=== PATIENT | female | born 2000 | race African-American/Black ===

== ENCOUNTER 2025-03-14 09:59 | Outpatient (REF) | payer OTHER, SELFPAY ==
[2025-03-14 11:37] LABS: Hematocrit 39.1 % (37.0-47.0); Hemoglobin 12.8 g/dl (12.0-16.0); Mean Corpuscular HGB Conc 32.7 g/dl (31.0-35.0); Mean Corpuscular Hemoglobin 30.5 pg (27.0-33.0); Mean Corpuscular Volume 93.3 fL (80.0-98.0); NRBC Abs Auto 0.000 X10*3/uL (0.0-0.012); NRBC Pct Auto 0.0 /100WBC (0.0-0.2); Platelet Count 192 X10*3/uL (160-400); Red Blood Count 4.19 X10*6/uL (4.20-5.50); White Blood Count 4.0 X10*3/uL (4.8-10.8)
[2025-03-14 13:50] LABS: HIV Num 1 0.06 S/CO (0.00-0.99); ~HepC Num1 0.14 S/CO (0.00-0.79); ~Hepatitis C Antibody Nonreactive (Nonreactive)
[2025-03-14 13:53] LABS: Alanine Aminotransferase 10 U/L (0-31); Albumin Level 4.5 g/dL (3.5-5.0); Alkaline Phosphatase 67 U/L (39-117); Anion Gap 11 (12-20); Aspartate Amino Transferase 19 U/L (5-31); Blood Urea Nitrogen 8 mg/dL (9-16); Calcium 9.2 mg/dL (8.4-10.2); Carbon Dioxide 25 mmol/L (22-29); Chloride 107 mmol/L (96-108); Cholesterol 179 mg/dL (<200); Estimated Glomerular Filt Rate > 60; HDL Cholesterol 69 mg/dL (>40); Potassium 4.7 mmol/L (3.3-5.1); Sodium 138 mmol/L (135-145); Total Protein 7.4 g/dL (6.5-8.0); Triglycerides 43 mg/dL (<150)
[2025-03-15 05:29] LABS: Rubeola IgG (Measles) 162.00 AU/mL
== END 2025-03-14 10:00 | disposition home or self-care (01) ==
LOC: HO.LAB 09:59
PROVIDERS: PCP Internal Medicine; Visit Provider Internal Medicine
DX: Z00.00 Encounter for general adult medical examination without abnormal findings (principal); Z23 Encounter for immunization; N89.8 Other specified noninflammatory disorders of vagina; N64.4 Mastodynia
CPT/HCPCS: 36415; 80053; 80061; 83036; 84443; 85027; 86735; 86762; 86765; 86803; 87389; 90471; 90472; 90656; 90715; 99202

== ENCOUNTER 2025-03-14 09:59 | Outpatient (AMB) | payer OTHER, SELFPAY ==
--- NOTE | 2025-03-14 10:18 | MHC.PC.OV ---
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 The patient reports experiencing random pain in her breasts a few times, with no discernible pattern or relationship to her menstrual cycle. The patient also reports a change in vaginal odor and a small amount of discharge, prompting a request for bacterial vaginosis testing. She does not currently have an SUPERVISOR MACHINE SETTER. The patient reports smoking cannabis mixed with tobacco, but not on a daily basis. She denies significant alcohol use. She reports taking no medications. The patient denies any past surgeries. Family history is negative for colon, breast, or ovarian cancer. She reports a family history of a brain tumor, but not in a close relative. COUNTS INCLUDE 234 BEDS AT THE [facility] Social History (Updated 03/14/25 @ 10:39 by Amber Roman MD) Alcohol intake: never Patient Tobacco Use Status: Current everyday Tobacco user Tobacco use type: Cigarette Substance Use Type: Marijuana Questionnaire PHQ-9 Over the last 2 weeks, how often have you been bothered by any of the following problems? 1. Little interest or pleasure in doing things: not at all 2. Feeling down, depressed, or hopeless: not at all 3. Trouble falling or staying asleep, or sleeping too much: not at all 4. Feeling tired or having little energy: not at all 5. Poor appetite or overeating: not at all 6. Feeling bad about yourself - or that you are a failure or have let yourself or your family down: not at all 7. Trouble concentrating on things, such as reading the newspaper or watching television: not at all 8. Moving or speaking so slowly that other people could have noticed. Or the opposite - being so fidgety or restless that you have been moving around a lot more than usual: not at all 9. Thoughts that you would be better off or of hurting yourself in some way: not at all Total score: 0 Depression Screening Interpretation: Negative Depression Screening Done: Yes Source: Developed by Drs. Semaj Galvez, Court Alfonso, Elder Boland and colleagues, with an educational flaquito from [employer]. Thrive Questionnaire I am a: Patient What is your living situation today?: I have a place to live, but I am worried about losing it in the future Within the past 12 months, did the food you bought not last and you didn't have the money to get more?: Sometimes True Within the past 12 months, did you worry whether your food would run out before you got money to buy more?: Sometimes True Do you have trouble paying for medicines?: No Do you have trouble getting transportation to medical appointments?: No Do you have trouble paying your heating and electricity bill?: Yes Do you have trouble taking care of your child, family member or friend?: No Do you have trouble with day-to-day activities such as bathing, preparing meals, shopping, managing finances, etc.?: No Are you currently unemployed and looking for a job?: No Are you interested in more education?: Yes Please select the resources that you would like help with: Housing/Chcf, Job search/training and Education Currently or been in a relationship where the following occur: Controlled Emotionally THRIVE Score: 5 AUDIT C Alcohol Use Questionnaire (AUDIT-C) 1. How often do you have a drink containing alcohol?: Monthly or less 2. How many drinks containing alcohol do you have on a typical day when you are drinking?: 1 or 2 3. How often do you have six or more drinks on one occasion?: Never Total Score: 1 SULTANA-7 AMB Questionnaire SULTANA-7 Feeling nervous, anxious, or on edge: 1 = Several days Not being able to stop or control worryin = Several days Worrying too much about different things: 1 = Several days Trouble relaxin = Several days Being so restless that it is hard to sit still: 0 = Not at all Becoming easily annoyed or irritable: 1 = Several days Feeling afraid as if something awful might happen: 0 = Not at all Total SULTANA-7 score (0-4 normal; 5-9 mild; 10-14 moderate; 15-21 severe): 5 Source: Developed by Drs. Semaj Galvez, Court Alfonso, Elder Boland and colleagues, with an educational flaquito from [employer]. Review of Systems Const Details: Positives besides what was mentioned in HPI are in BOLD Constitutional: No Weight Change, No Fever, No Chills, No Night Sweats, No Fatigue, No Malaise ENT/Mouth: No Hearing Changes, No Ear Pain, No Nasal Congestion, No Sinus Pain, No Hoarseness, No sore throat, No Rhinorrhea, No Swallowing Difficulty Eyes: No Eye Pain, No Swelling, No Redness, No Foreign Body, No Discharge, No Vision Changes Cardiovascular: No Chest Pain, No SOB, No PND, No Dyspnea on Exertion, No Orthopnea, No Claudication, No Edema, No Palpitations Respiratory: No Cough, No Sputum, No Wheezing, No Smoke Exposure, No Dyspnea Gastrointestinal: No Nausea, No Vomiting, No Diarrhea, No Constipation, No Pain, No Heartburn, No Anorexia, No Dysphagia, No Hematochezia, No Melena, No Flatulence, No Jaundice Genitourinary: No Dysmenorrhea, No DUB, No Dyspareunia, No Dysuria, No Urinary Frequency, No Hematuria, No Urinary Incontinence, No Urgency, No Flank Pain, No Urinary Flow Changes, No Hesitancy Musculoskeletal: No Arthralgias, No Myalgias, No Joint Swelling, No Joint Stiffness, No Back Pain, No Neck Pain, No Injury History Skin: No Skin Lesions, No Pruritis, No Hair Changes, No Breast/Skin Changes, No Nipple Discharge Neuro: No Weakness, No Numbness, No Paresthesias, No Loss of Consciousness, No Syncope, No Dizziness, No Headache, No Coordination Changes, No Recent Falls Psych: No Anxiety/Panic, No Depression, No Insomnia, No Personality Changes, No Delusions, No Rumination, No SI/HI/AH/VH, No Social Issues, No Memory Changes, No Violence/Abuse Hx., No Eating Concerns Heme/Lymph: No Bruising, No Bleeding, No Transfusions History, No Lymphadenopathy Endocrine: No Polyuria, No Polydipsia, No Temperature Intolerance Physical exam (Primary Care) Vital Signs: Last Vital Signs Temp 98.0 F 03/14/25 10:21 Pulse 63 03/14/25 10:21 Resp 12 03/14/25 10:21 BP 104/68 03/14/25 10:21 Pulse Ox 99 03/14/25 10:21 Oxygen Delivery Method Room Air 03/14/25 10:21 BMI result Body Mass Index 16.5 Tobacco/Smoking Status: Tobacco use Status Patient Tobacco Use Status Current everyday Tobacco 03/14/25 10:39 Tobacco use type Cigarette 03/14/25 10:39 PHQ-9: PHQ-9 Score PHQ-9: Total score 0 03/14/25 10:41 Depression Screening Interpretation: Negative Currently or been in a relationship where the following occur: Controlled Emotionally Const Other: Pertinent findings are in BOLD GENERAL APPEARANCE NAD, activity normal for age, well developed/ well nourished, no cyanosis, pallor, or diaphoresis. EYES lids/conjunctiva normal. EARS/NOSE/THROAT Mucous membranes moist, nares normal, lips/teeth normal uvula midline without oral pharyngeal erythema, exudate or swelling TMs normal bilaterally. No lymphangitis/lymphedema. HEAD/NECK normocephalic atraumatic, no facial trauma, neck is supple. RESPIRATORY respiratory effort normal, speaks in full sentences, no tripod position, no accessory muscle use. Lungs clear to auscultation without rhonchi, wheezes, rales CARDIAC Regular rate and rhythm, no edema. ABDOMINAL Soft, ND/NT. No evidence of fluid wave. No pulsatile masses on exam, rebound tenderness, Angel sign or pain over Mcburney's point. MUSCLES/EXTREMITIES No abnormal range of motion, no swelling. SKIN Warm, pink and dry. No rashes, dermatoses, petechiae or lesions. NEUROLOGICAL Speech is clear and appropriate. Normal level of consciousness. Gait and coordination are normal. 5/5 strength in all extremities. PSYCH Normal mood and affect. Judgement/competence is appropriate Office Procedures Flu Questionnaire Does the patient have a severe egg allergy?: No Does the patient have severe life threatening allergies?: No Does the patient have a fever or illness today?: No Has the patient ever had Guillain-[place] Syndrome?: No Has the patient ever had any past reaction to a flu shot?: No Immunizations Fluarix (PF) 45 mcg (15 mcg x 3)/0.5 mL IM syringe Performing Provider: Amber Roman MD [facility] Administered by: Tia Denton LPN on 03/14/25 10:54 Dose Route Admin Location Dispensed Lot Number Expiration Date ND Ceo 0.5 mL IM Left Deltoid 0.5 mL [id number] 09/24/25 40323-950-12 [employer] VIS Given Date VIS Provided VIS Publication Date 03/14/25 Single Vaccine 24 Eligibility Eligibility Date Funding Source Not VFC Eligible 03/14/25 Private Boostrix Tdap 2.5 Lf unit-8 mcg-5 Lf/0.5 mL intramuscular syringe Performing Provider: Amber Roman MD [facility] Administered by: Tia Denton LPN on 03/14/25 10:54 Dose Route Admin Location Dispensed Lot Number Expiration Date [facility] Ceo 0.5 mL IM Right Deltoid 0.5 mL [id number] 09/07/27 [id number] [employer] Total Dispensed Waste 0.5 mL 0 % VIS Given Date VIS Provided VIS Publication Date 03/14/25 Single Vaccine 20 Eligibility Eligibility Date Funding Source Not VF Eligible 03/14/25 Private Coding Level of Care Code New Pt Level 4 (49208) Diagnoses Healthcare maintenance Z00.00 Vaginal discharge N89.8 Mastalgia N64.4 Time Spent (min) 30 Assessment & Plan Assessment & Plan (1) Healthcare maintenance: Code(s): Z00.00 - Encounter for general adult medical examination without abnormal findings Category: Medical Plan: CBC, CMP, Lipid panel, A1C, TSH w T4. Ordered. Shingles 2 doses when >50 yo. At 50. COVID: two doses. Completed. Tdap: Today. Pneumococcal: >50 yo. 18-49 with CKD, lung disease, weakened immune system, Heart disease, DM, cochlear implant. At 50. Flu vaccine: Today. Colonoscopy: 45-75. at 45. AAA: 65 -75. Will discuss at 65[address]oker. CT lun - 80. Will discuss at 50. Current smoker. HPV: master deputy sheriff court security referred. HIV: Ordered today. HCV: Ordered today. Dexa: At 65. Mammogram: At 40. - General blood tests will be ordered for the patient. 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 - An influenza vaccine and a Tdap vaccine were administered in-office. (2) Vaginal discharge: Code(s): N89.8 - Other specified noninflammatory disorders of vagina Category: Medical Plan: - The patient complains of altered vaginal odor and a small amount of discharge. - Bacterial vaginosis, CT NG PCR ordered. - HIV and HCV ordered. (3) Mastalgia: Code(s): N64.4 - Mastodynia Category: Medical Plan: - The patient reports random, intermittent breast pain not associated with her menstrual cycle. - A referral will be placed to an SUPERVISOR MACHINE SETTER specialist for further evaluation and management. Plan I informed the patient, who [facility] and for a pre-employment evaluation, about the plan for her visit. I explained that I would order general blood tests, along with specific screenings for HIV, Hepatitis C, and MMR immunity status, which she consented to. At her request, I also ordered tests for bacterial vaginosis and chlamydia. I instructed her that all blood work would need to be completed at the [facility]. For her complaint of breast pain, I recommended a referral to an SUPERVISOR MACHINE SETTER, noting this is also appropriate for routine gynecological care for a woman her age. We administered a Tdap and an influenza vaccine during the visit. I informed her that if her MMR titers are low, she can obtain the vaccine at a pharmacy without needing to return to the clinic. We agreed on a follow-up appointment in four months to review all the lab results and for a general check-up. Orders: Orders Complete Blood Count no Diff Today Z00.00 - Encounter for general adult medical examination without abnormal findings TSH reflex Free T4 Today Z00.00 - Encounter for general adult medical examination without abnormal findings Lipid Panel Today Z00.00 - Encounter for general adult medical examination without abnormal findings Hemoglobin A1c Today Z00.00 - Encounter for general adult medical examination without abnormal findings MMR IgG Measles Mumps Rubella Today Z00.00 - Encounter for general adult medical examination without abnormal findings Bacterial Vaginosis Panel Today N89.8 - Other specified noninflammatory disorders of vagina CT NG by PCR Vag/Cerv Today N89.8 - Other specified noninflammatory disorders of vagina Influenza [id number] Immunization Today Z23 - Encounter for immunization Comprehensive Met. Panel Today Z00.00 - Encounter for general adult medical examination without abnormal findings HIV Ab/Ag Today Z00.00 - Encounter for general adult medical examination without abnormal findings Hepatitis C Antibody Reflex Today Z00.00 - Encounter for general adult medical examination without abnormal findings TDaP Immunization Today Z23 - Encounter for immunization Referrals SUPERVISOR MACHINE SETTER Referral Z00.00 - Encounter for general adult medical examination without abnormal findings
[2025-03-14 10:21] VITALS: BP 104/68; PULSE 63; RESP 12; TEMP 36.7; O2SAT 99; BMI 16.5
== END 2025-03-14 10:51 | disposition home or self-care (01) ==
PROVIDERS: PCP Internal Medicine; Visit Provider Internal Medicine
DX: Z00.00 Encounter for general adult medical examination without abnormal findings (principal); N89.8 Other specified noninflammatory disorders of vagina; N64.4 Mastodynia; Z23 Encounter for immunization